=== PATIENT | male | born 1975 | race Caucasian/White ===

== ENCOUNTER 2017-04-10 15:01 | Inpatient (IN) | payer OTHER ==
[~2017-04-10] VITALS: Ht 172.7 cm; Wt 87.0 kg
[~2017-04-10 15:01] MED LIST: PERCOCET1 TA2 PO; TRAMADOL HCL50 MG PO; XANAX0.5 MG PO
[2017-04-10 15:43] LABS: BASOPHIL % 0.8 % (0-2); PLATELET COUNT 169 x10^3mcL (130-400); RED CELL DISTRIBUTION WIDTH 13.7 % (11.5-14.5)
[2017-04-10] MEDS ORDERED: ATENOLOL25 MG PO (15:45)
[2017-04-10 16:08] LABS: ALBUMIN 4.1 g/dL (3.4-5.0); ALKALINE PHOSPHATASE 92 U/L (46-116); ALT/SGPT 169 U/L (16-63); AST/SGOT 136 U/L (15-37); BILIRUBIN TOTAL 0.99 mg/dL (0.20-1.00); CALCIUM 8.8 mg/dL (8.5-10.1); CARBON DIOXIDE 28.6 mmol/L (21-32); CHLORIDE SERUM 103 mmol/L (98-107); CREATININE SERUM 0.8 mg/dL (0.7-1.3); GFR1 > 60 mL/min; GLUCOSE SERUM 94 mg/dL (74-106); SODIUM SERUM 138 mmol/L (136-145)
[2017-04-10 16:12] LABS: POTASSIUM SERUM 4.4 mmol/L (3.5-5.1)
[2017-04-10 16:17] LABS: AMPHETAMINE QUAL UR NONE DETECTED (NEG <=1000)
[2017-04-10 17:09] VITALS: BP 126/89
[2017-04-10 20:53] VITALS: BP 132/86
[2017-04-11 06:13] LABS: CALCIUM 7.9 mg/dL (8.5-10.1); CHLORIDE SERUM 106 mmol/L (98-107); CREATININE SERUM 0.8 mg/dL (0.7-1.3); GFR1 > 60 mL/min; GLUCOSE SERUM 80 mg/dL (74-106); POTASSIUM SERUM 3.6 mmol/L (3.5-5.1); SODIUM SERUM 140 mmol/L (136-145)
[2017-04-11 06:21] LABS: BASOPHIL % 0.9 % (0-2); PLATELET COUNT 159 x10^3mcL (130-400); RED CELL DISTRIBUTION WIDTH 13.9 % (11.5-14.5)
[2017-04-11 07:07] VITALS: BP 112/73
[2017-04-11 10:17] VITALS: BP 125/85
[2017-04-11 15:11] VITALS: BP 125/85
[2017-04-11 16:51] VITALS: BP 111/72
== END 2017-04-11 17:00 | disposition home or self-care (01) | DRG 203 ==
LOC: ED 15:01 → DU 16:22
PROVIDERS: Emergency Medicine; ADMIT Internal Medicine Pulmonary Disease
DX: R07.89 Other chest pain (principal); I10 Essential (primary) hypertension; Z88.2 Allergy status to sulfonamides; F10.10 Alcohol abuse, uncomplicated; Y90.9 Presence of alcohol in blood, level not specified
CPT/HCPCS: 83880; A9500; G0480; J2270; J3411; J3475; J3490; J7030

== ENCOUNTER 2018-01-25 12:09 | Emergency (ER) | payer OTHER ==
[~2018-01-25] VITALS: Ht 172.7 cm; Wt 90.3 kg
[~2018-01-25 12:09] MED LIST changes: +ATENOLOL25 MG PO
[2018-01-25 12:15] VITALS: Ht 172.7 cm; Wt 90.3 kg
[2018-01-25 14:31] LABS: BASOPHIL % 0.4 % (0-2); PLATELET COUNT 181 x10^3mcL (130-400)
[2018-01-25 14:43] LABS: CALCIUM 7.3 mg/dL (8.5-10.1); CARBON DIOXIDE 30.3 mmol/L (21-32); CHLORIDE SERUM 110 mmol/L (98-107); CREATININE SERUM 0.7 mg/dL (0.7-1.3); GFR1 > 60 mL/min; GLUCOSE SERUM 118 mg/dL (74-106); POTASSIUM SERUM 3.5 mmol/L (3.5-5.1); SODIUM SERUM 143 mmol/L (136-145)
[2018-01-25 14:47] LABS: ALBUMIN 3.5 g/dL (3.4-5.0); ALKALINE PHOSPHATASE 83 U/L (46-116); ALT/SGPT 169 U/L (16-63); AST/SGOT 81 U/L (15-37); BILIRUBIN TOTAL 0.3 mg/dL (0.20-1.00); TOTAL PROTEIN, SERUM 6.6 g/dL (6.4-8.2)
[2018-01-25 15:56] VITALS: BP 130/86
== END 2018-01-25 15:56 | disposition home or self-care (01) ==
LOC: ED 12:09
PROVIDERS: Emergency Medicine
DX: T47.6X5A Adverse effect of antidiarrheal drugs, initial encounter (principal); I10 Essential (primary) hypertension; Z88.2 Allergy status to sulfonamides; Y92.89 Other specified places as the place of occurrence of the external cause
CPT/HCPCS: J1100; J1200; J3490; J7030; J7040

== ENCOUNTER 2020-09-11 16:20 | Emergency (ER) | payer OTHER ==
[~2020-09-11] VITALS: Ht 172.7 cm; Wt 77.1 kg
[2020-09-11 16:37] VITALS: Ht 172.7 cm; Wt 77.1 kg
[2020-09-11 18:34] VITALS: BP 164/116
== END 2020-09-11 18:34 | disposition home or self-care (01) ==
LOC: ED 16:20
DX: S82.432A Displaced oblique fracture of shaft of left fibula, initial encounter for closed fracture (principal); Y04.8XXA Assault by other bodily force, initial encounter; Y93.89 Activity, other specified; Y92.89 Other specified places as the place of occurrence of the external cause; Y99.8 Other external cause status